=== PATIENT | female | born 1955 | race Caucasian/White ===

== ENCOUNTER → 2017-02-03 | Outpatient (CLI) | payer SELFPAY ==
[2017-02-03 11:31] LABS: HEMATOCRIT 45.3 % (37.0-47.0); MEAN CELL VOLUME 96 fl (80.0-100.0); MEAN CORPUSCULAR HEMOGLOBIN 32 pg (27.0-31.0); MEAN CORPUSCULAR HGB CONC 33 g/dl (33.0-37.0); MEAN PLATELET VOLUME 10.9 fl (7.4-10.4); PLATELET COUNT 206 K/mm3 (130-400); RED BLOOD COUNT 4.71 M/mm3 (4.10-5.30); REDCELL DISTRIBUTION WIDTH-CV 12.1 % (11.5-14.5); WHITE BLOOD COUNT 4.7 K/mm3 (4.8-10.8)
[2017-02-03 11:42] LABS: ADJUSTED CALCIUM 9.4 mg/dL (8.4-10.2); ALBUMIN 4.3 gm/dL (3.5-5.0); BILIRUBIN,TOTAL 0.9 mg/dL (0.0-1.0); CALCIUM 9.6 mg/dL (8.4-10.2); CREATININE, serum 0.74 mg/dL (0.52-1.25); TOTAL PROTEIN 7.7 gm/dL (6.4-8.2)
[2017-02-03 12:11] LABS: THYROID STIMULATING HORMONE 1.11 uIU/mL (0.465-4.680)
== END ==
LOC: ZLAB.FHCC 11:19
PROVIDERS: Family Medicine
DX: Z01.89 Encounter for other specified special examinations (principal)

== ENCOUNTER → 2017-02-25 | Outpatient (CLI) | payer SELFPAY | LOC: SUN.DIA 10:37 | DX: E10.65 Type 1 diabetes mellitus with hyperglycemia (principal); Z68.1 Body mass index [BMI] 19.9 or less, adult; Z79.4 Long term (current) use of insulin; Z71.3 Dietary counseling and surveillance | CPT/HCPCS: G0108 ==

== ENCOUNTER 2022-07-15 12:01 | Emergency (ER) | payer MEDICARE ==
[~2022-07-15] VITALS: Ht 154.9 cm; Wt 50.9 kg
[2022-07-15 12:18] VITALS: TEMP 97.5
[2022-07-15] MEDS ORDERED: HUMULIN 70/3100 U/M1 SQ ×2 (12:22→12:23)
[2022-07-15] MEDS ORDERED: PRINIVIL10 MG PO ×2 (12:24→16:21)
[2022-07-15 13:22] LABS: BASO % 0.2 % (0.0-2.0); EOS % 0.1 % (0.0-4.0); GRAN # 7.2 K/mm3 (1.4-6.5); GRAN % 78.1 % (42.2-75.2); HEMATOCRIT 42.6 % (37.0-47.0); HEMOGLOBIN 14.3 g/dl (12.5-16.0); LYMPH # 1.4 K/mm3 (1.2-3.4); MEAN CELL VOLUME 93 fl (80.0-100.0); MEAN CORPUSCULAR HEMOGLOBIN 31 pg (27-31); MEAN CORPUSCULAR HGB CONC 34 g/dl (33.0-37.0); MEAN PLATELET VOLUME 10.5 fl (7.4-10.4); MONO # 0.6 K/mm3 (0.1-0.6); MONO % 6.3 % (1.7-9.3); PLATELET COUNT 289 K/mm3 (130-400); REDCELL DISTRIBUTION WIDTH-CV 12.3 % (11.5-14.5)
[2022-07-15 13:27] LABS: COLLECTION METHOD CLEAN CATCH
[2022-07-15 13:36] LABS: ACETONE,SERUM SMALL
[2022-07-15 13:37] LABS: MUCOUS Present (NOT PRESENT); SQUAMOUS EPITHELIAL 0-2 /hpf (0-10); URINE APPEARANCE Clear (CLEAR/HAZY); URINE BACTERIA None Seen /hpf (NONE SEEN); URINE COLOR Yellow (YELLOW); URINE RBC 0-2 /hpf (0-2)
[2022-07-15 13:38] LABS: PH 5.5 (5.0-8.5); URINE BLOOD Negative (NEGATIVE); URINE GLUCOSE 2+ (NEGATIVE); URINE KETONE 4+ (NEGATIVE); URINE NITRATE Negative (NEGATIVE); URINE PROTEIN(semi-quant) 1+ (NEGATIVE); URINE UROBILINOGEN 0.2 E.U/dL (0.2-1.0)
[2022-07-15 13:42] LABS: ALANINE AMINOTRANSFERASE 14 U/L (0-55); ALBUMIN 3.9 gm/dL (3.4-4.8); ALKALINE PHOSPHATASE 88 U/L (40-150); ANION GAP 21 mmol/L (7-16); AST,SGOT 13 U/L (5-34); BILIRUBIN,TOTAL 0.7 mg/dL (0.2-1.2); BLOOD UREA NITROGEN 18 mg/dL (10-20); CALCIUM 9.2 mg/dL (8.4-10.2); CARBON DIOXIDE 20 mmol/L (23-31); CREATININE, serum 1.06 mg/dL (0.57-1.11); GLUCOSE 393 mg/dL (70-99); LIPASE 35 U/L (8-78); SODIUM 129 mmol/L (136-145)
[2022-07-15 13:45] LABS: CHLORIDE 88 mmol/L (98-107)
[2022-07-15 14:02] LABS: TSH w REFLEX 0.865 uIU/mL (0.350-4.940)
[2022-07-15 14:03] LABS: TROPONIN-I < 0.010 ng/mL (0.00-0.033)
[2022-07-15 16:07] LABS: CALCIUM 8.7 mg/dL (8.4-10.2); CREATININE, serum 0.85 mg/dL (0.57-1.11); POTASSIUM 3.5 mmol/L (3.5-4.5)
[2022-07-15] MEDS ORDERED: ZOFRAN ODT4 MG PO (16:21)
[2022-07-15 16:28] VITALS: BP 178/76; PULSE 94
== END 2022-07-15 16:28 | disposition home or self-care (01) ==
LOC: COL.ER 12:01
PROVIDERS: Emergency Medicine
DX: E10.65 Type 1 diabetes mellitus with hyperglycemia (principal); I10 Essential (primary) hypertension; Z87.891 Personal history of nicotine dependence; Z20.822 Contact with and (suspected) exposure to COVID-19; Z79.4 Long term (current) use of insulin; Z28.310 Unvaccinated for COVID-19
CPT/HCPCS: J1815; J2405; J7120

== ENCOUNTER 2024-03-19 06:16 | Emergency (ER) | payer MEDICARE ==
[~2024-03-19] VITALS: Ht 165.1 cm; Wt 52.3 kg
[~2024-03-19 06:16] MED LIST: HUMULIN 70/3100 U/M1 SQ; PRINIVIL10 MG PO; ZOFRAN ODT4 MG PO
[2024-03-19 06:30] VITALS: TEMP 98.5
[2024-03-19 07:16] LABS: BASO # 0.1 K/mm3 (0.0-0.2); BASO % 0.4 % (0.0-2.0); GRAN # 14.1 K/mm3 (1.4-6.5); GRAN % 85.6 % (42.2-75.2); HEMATOCRIT 41.4 % (37.0-47.0); LYMPH # 1.2 K/mm3 (1.2-3.4); LYMPH % 7.2 % (20.0-51.0); MEAN CELL VOLUME 93 fl (80.0-100.0); MEAN CORPUSCULAR HEMOGLOBIN 32 pg (27-31); MEAN CORPUSCULAR HGB CONC 34 g/dl (33.0-37.0); MONO % 6.1 % (1.7-9.3); PLATELET COUNT 177 K/mm3 (130-400); RED BLOOD COUNT 4.44 M/mm3 (4.10-5.30)
[2024-03-19 07:28] LABS: ALANINE AMINOTRANSFERASE 14 U/L (0-55); ALBUMIN 3.4 g/dL (3.4-4.8); ALKALINE PHOSPHATASE 108 U/L (40-150); ANION GAP 12 mmol/L (7-16); AST,SGOT 21 U/L (5-34); BILIRUBIN,TOTAL 1.1 mg/dL (0.2-1.2); BLOOD UREA NITROGEN 9 mg/dL (10-20); CALCIUM 9.4 mg/dL (8.4-10.2); CHLORIDE 97 mEq/L (98-107); CREATININE, serum 1.22 mg/dL (0.57-1.11); GLUCOSE 355 mg/dL (70-99); POTASSIUM 4.2 mEq/L (3.5-4.5); SODIUM 132 mEq/L (136-145); TOTAL PROTEIN 7.5 g/dl (6.2-8.1)
[2024-03-19] MEDS ORDERED: Ketorolac 15 MG/ML VIAL IV ONE (07:30)
[2024-03-19 07:37] LABS: TROPONIN-I < 0.010 ng/mL (0.00-0.033)
[2024-03-19] MEDS ORDERED: Iohexol 300 - 100 ML VIAL IV ONE (07:49)
[2024-03-19] MEDS ORDERED: NS 100 ML IV SCH (07:50)
[2024-03-19] MEDS ORDERED: DOXYCYCLINE 10100 MG PO (08:27)
[2024-03-19] MEDS ORDERED: cefTRIAXone 1 G in Water For Injection,Sterile 10 ML IV ONE (08:30)
[2024-03-19] MEDS ORDERED: NAPROSYN500 MG PO (08:32)
[2024-03-19 08:52] VITALS: BP 148/66; PULSE 90
[2024-03-20] MEDS ORDERED: MELATONIN5 M1 SL (22:35)
== END 2024-03-19 08:57 | disposition home or self-care (01) ==
LOC: COL.ER 06:16
PROVIDERS: Personal Emergency Response Attendant
DX: J18.9 Pneumonia, unspecified organism (principal); E11.65 Type 2 diabetes mellitus with hyperglycemia; D72.829 Elevated white blood cell count, unspecified; Z87.891 Personal history of nicotine dependence
CPT/HCPCS: J0696; J1885; Q9967

== ENCOUNTER 2024-03-20 08:22 | Inpatient (IN) | payer MEDICARE ==
[~2024-03-20] VITALS: Ht 165.1 cm; Wt 43.9 kg
[~2024-03-20 08:22] MED LIST changes: +DOXYCYCLINE 10100 MG PO; +NAPROSYN500 MG PO
[2024-03-20] MEDS ORDERED: NS 1,000 ML IV ONE (08:45)
[2024-03-20] MEDS ORDERED: Doxycycline Hyclate 100 MG in NS 150 ML IV ONE (09:15)
[2024-03-20] MEDS ORDERED: cefTRIAXone 1 G in Water For Injection,Sterile 10 ML IV ONE (09:15)
[2024-03-20 09:21] LABS: HEMOGLOBIN 13.8 g/dl (12.5-16.0); MEAN CELL VOLUME 94 fl (80.0-100.0); MEAN CORPUSCULAR HEMOGLOBIN 32 pg (27-31); MEAN CORPUSCULAR HGB CONC 34 g/dl (33.0-37.0); MEAN PLATELET VOLUME 11.3 fl (7.4-10.4); PLATELET COUNT 197 K/mm3 (130-400); RED BLOOD COUNT 4.36 M/mm3 (4.10-5.30)
[2024-03-20 10:08] LABS: ALBUMIN 3.6 g/dL (3.4-4.8); BILIRUBIN,TOTAL 0.5 mg/dL (0.2-1.2); CALCIUM 10.1 mg/dL (8.4-10.2); CREATININE, serum 1.27 mg/dL (0.57-1.11); POTASSIUM 3.7 mEq/L (3.5-4.5); TOTAL PROTEIN 8.1 g/dl (6.2-8.1)
[2024-03-20 11:09] VITALS: BP 172/70; PULSE 93; TEMP 98
[2024-03-20] MEDS ORDERED: Polyethylene Glycol 3350 17 GM PDS PO PRN (12:00)
[2024-03-20] MEDS ORDERED: Docusate Sodium 100 MG CAP PO PRN (12:00)
[2024-03-20] MEDS ORDERED: Insulin Lispro (HumaLOG) SQ SCH (12:00)
[2024-03-20] MEDS ORDERED: Acetaminophen 325 MG TAB PO PRN (12:00)
[2024-03-20] MEDS ORDERED: Ondansetron 4 MG/2 ML VIAL IV PRN (12:00)
[2024-03-20] MEDS ORDERED: NS 1,000 ML IV SCH (12:00)
[2024-03-20] MEDS ORDERED: Azithromycin 500 MG in NS 250 ML IV SCH (12:15)
[2024-03-20 13:05] LABS: BAND 2 % (0-10); LYMPHOCYTE 3 % (20.0-51.0); NEUTROPHILS 95 % (42.0-75.2); PLATELET ESTIMATE NORMAL (NORMAL)
--- NOTE | 2024-03-20 15:54 | NUR ---
SW was called to complete DPOA/HC documentation for patient. Patient appointed daughter Adarsh Ames [phone]. Document reviewed, signed and witnessed. SW provided copy to patient and placed original in chart. SW was unaware this was a new patient intake was not completed. SW will continue to follow to assist.
[2024-03-20 17:00] VITALS: BP_SYST 157
[2024-03-20 17:14] VITALS: BP 157/57; PULSE 88; TEMP 98.2
[2024-03-20] MEDS ORDERED: Insulin NPH/REG (NovoLIN 70/30) SQ SCH (21:00)
[2024-03-20 21:03] VITALS: BP 159/70; PULSE 81; TEMP 98
[2024-03-20 21:30] VITALS: BP_SYST 159
--- NOTE | 2024-03-20 21:30 | NUR ---
Pt. sitting up in bed. Pt. is A&OX3, assessment complete. IV to lt. forearm patent. Pt. denies pain or other needs, call light within reach.
[2024-03-20] MEDS ORDERED: MELATONIN5 M1 SL (22:35)
[2024-03-20] MEDS ORDERED: Melatonin 3 MG TAB PO SCH (22:45)
[2024-03-21] VITALS (11 sets, daily range): BP systolic 154–184; BP diastolic 58–74; PULSE 83–107; TEMP 97.5–98.4
[2024-03-21] MEDS ORDERED: hydrALAZINE 20 MG/ML 1 ML VIAL IV PRN (00:45)
[2024-03-21] MEDS ORDERED: Promethazine 25 MG TAB PO PRN (02:00)
[2024-03-21 02:51] LABS: CREATININE, serum 1.01 mg/dL (0.57-1.11); FRACTIONAL EXCRETION OF NA+ 0.55 %
[2024-03-21] MEDS ORDERED: Glucagon 1 MG VIAL IM PRN (07:15)
[2024-03-21] MEDS ORDERED: Dextrose 50% Water 25 GM/50 ML SYRINGE IV PRN (07:15)
[2024-03-21] MEDS ORDERED: Dextrose (Glucose) 15 GM (4 x 3.75 GM) Chewable TABLET PACK PO PRN (07:15)
[2024-03-21 08:26] LABS: HEMATOCRIT 40.8 % (37.0-47.0); HEMOGLOBIN 13.3 g/dl (12.5-16.0); MEAN CELL VOLUME 97 fl (80.0-100.0); MEAN CORPUSCULAR HEMOGLOBIN 32 pg (27-31); MEAN CORPUSCULAR HGB CONC 33 g/dl (33.0-37.0); MEAN PLATELET VOLUME 12.2 fl (7.4-10.4); PLATELET COUNT 278 K/mm3 (130-400); RED BLOOD COUNT 4.21 M/mm3 (4.10-5.30); REDCELL DISTRIBUTION WIDTH-CV 12.5 % (11.5-14.5)
[2024-03-21 08:47] LABS: CALCIUM 8.7 mg/dL (8.4-10.2); CREATININE, serum 1.19 mg/dL (0.57-1.11); POTASSIUM 3.9 mEq/L (3.5-4.5)
[2024-03-21] MEDS ORDERED: Insulin NPH/REG (NovoLIN 70/30) SQ SCH ×2 (09:00→17:15)
[2024-03-21] MEDS ORDERED: cefTRIAXone 1 G in Water For Injection,Sterile 10 ML IV SCH (09:00)
[2024-03-21] MEDS ORDERED: Lisinopril 10 MG TAB PO SCH (09:00)
--- NOTE | 2024-03-21 09:00 | NUR ---
pt A&OX4 sitting up on the side of the bed. vss. pt denies pain. nausea present, zofran given. pt blood sugar 398 this morning, 8 units of insulin given per sliding scale. Jackelin JEONG notified of low CO2 of 13. fluids infusing into left forearm. pt denies needs at this time. call light in reach.
[2024-03-21 09:55] LABS: BAND 4 % (0-10); LYMPHOCYTE 9 % (20.0-51.0); NEUTROPHILS 84 % (42.0-75.2); PLATELET ESTIMATE NORMAL (NORMAL)
--- NOTE | 2024-03-21 10:31 | NUR ---
Oncology Consultant met with patient to discuss discharge planning. Patient lives in [place] with her daughter, Adarsh (ph#[phone]) and does not have a current primary care provider. Patient gets any needed medications at [facility] and does not use any DME. Patient is independent with ADLS and plans to return home at time of discharge. SW spoke with patient about primary care and she was agreeable to have assistance getting established. SW discussed [facility] as they are taking new medicare patients. Patient is agreeable to this. Discharge Plan: Home
[2024-03-21 11:30] LABS: CALCIUM 8.4 mg/dL (8.4-10.2); CREATININE, serum 1.33 mg/dL (0.57-1.11); POTASSIUM 3.7 mEq/L (3.5-4.5)
[2024-03-21] MEDS ORDERED: AlOH3/diphen/Lidoc/MgOH2/Simet Oral Susp 10 ML UD Syringe PO SCH (11:30)
[2024-03-21] MEDS ORDERED: Insulin Human Regular/NS 100 ML IV SCH (12:00)
[2024-03-21] MEDS ORDERED: D5 1/2 NS 1,000 ML IV SCH (12:00)
[2024-03-21] MEDS ORDERED: NS & 20 mEq KCl 1,000 ML IV SCH (12:00)
[2024-03-21 12:13] LABS: MAGNESIUM 1.9 mg/dL (1.6-2.6); PHOSPHOROUS 3.2 mg/dL (2.3-4.7)
--- NOTE | 2024-03-21 13:17 | NUR ---
Initial visit; Patient was ordering coffee but thanked Cement Block Maker for looking in on her and keeping her in her prayers and offering God's blessings. Cement Block Maker mentined she is available to [facility] if she would like a visit later.
--- NOTE | 2024-03-21 13:55 | NUR ---
report called to Guadalupe Bolanos in ICU, pt transferred too ICU room 5.
--- NOTE | 2024-03-21 14:00 | NUR ---
PATIENT TRANSFERRED TO ICU ROOM 5 FROM MEDICAL FLOOR. REPORT RECEIVED FROM MEDICAL RNMANJINDER. PATIENT ARRIVED VIA WHEELCHAIR ACCOMPANIED BY ANNABELLA DUNBAR. PATIENT ABLE TO AMBULATE TO BED INDEPENDENTLY. VSS. PATIENT SITUATED INTO BED AND ORIENTED TO ICU. BED IN A LOW POSITION. CALL LIGHT WITHIN REACH.
[2024-03-21 16:47] LABS: CALCIUM 8.4 mg/dL (8.4-10.2); CREATININE, serum 1.08 mg/dL (0.57-1.11); POTASSIUM 3.6 mEq/L (3.5-4.5)
[2024-03-21] MEDS ORDERED: NS 1,000 ML IV SCH (18:45)
--- NOTE | 2024-03-21 19:15 | NUR ---
Received report from ANNABELLA Butcher.
[2024-03-21 19:35] LABS: CALCIUM 8.3 mg/dL (8.4-10.2); CREATININE, serum 0.98 mg/dL (0.57-1.11); POTASSIUM 3.1 mEq/L (3.5-4.5)
--- NOTE | 2024-03-21 20:00 | NUR ---
Patient sitting up in bed watching TV. Denies pain or discomfort. Vitals within normal limits. Insulin drip remains off at this time.
[2024-03-21] MEDS ORDERED: Potassium Bicarbonate/Citrate 20 MEQ Effervescent TAB PO SCH (20:45)
[2024-03-21] MEDS ORDERED: *Potassium Replacement Protocol MC SCH (20:45)
[2024-03-21] MEDS ORDERED: Insulin Lispro (HumaLOG) SQ SCH (21:00)
[2024-03-21] MEDS ORDERED: Potassium Chloride 100 ML IV SCH (21:15)
[2024-03-21 21:39] LABS: CALCIUM 8.6 mg/dL (8.4-10.2); POTASSIUM 3.5 mEq/L (3.5-4.5)
[2024-03-22] VITALS (7 sets, daily range): BP systolic 151–179; BP diastolic 67–86; PULSE 77–85; TEMP 97.6–98.1
[2024-03-22 04:42] LABS: BASO % 0.2 % (0.0-2.0); GRAN # 8.8 K/mm3 (1.4-6.5); GRAN % 76.8 % (42.2-75.2); HEMATOCRIT 37.5 % (37.0-47.0); HEMOGLOBIN 12.7 g/dl (12.5-16.0); LYMPH # 1.8 K/mm3 (1.2-3.4); LYMPH % 15.4 % (20.0-51.0); MEAN CELL VOLUME 93 fl (80.0-100.0); MEAN CORPUSCULAR HEMOGLOBIN 32 pg (27-31); MEAN CORPUSCULAR HGB CONC 34 g/dl (33.0-37.0); MEAN PLATELET VOLUME 10.9 fl (7.4-10.4); MONO # 0.8 K/mm3 (0.1-0.6); MONO % 6.9 % (1.7-9.3); PLATELET COUNT 252 K/mm3 (130-400); RED BLOOD COUNT 4.02 M/mm3 (4.10-5.30); REDCELL DISTRIBUTION WIDTH-CV 12.5 % (11.5-14.5)
[2024-03-22 04:58] LABS: CALCIUM 8.1 mg/dL (8.4-10.2); CREATININE, serum 0.87 mg/dL (0.57-1.11); POTASSIUM 4.3 mEq/L (3.5-4.5)
[2024-03-22] MEDS ORDERED: Lidocaine PF 2% (20 MG/ML) 5 ML VIAL ONE (07:17)
[2024-03-22] MEDS ORDERED: Insulin NPH/REG (NovoLIN 70/30) SQ SCH (07:30)
--- NOTE | 2024-03-22 07:33 | NUR ---
RECEIVED REPORT FROM MILDRED SMITH RN. PATIENT RESTING IN BED WITH EYES CLOSED. PATIENT INDEPENDENT IN ROOM AND MEDICAL STATUS. BED IN A LOW POSITION. CALL LIGHT WITHIN REACH.
--- NOTE | 2024-03-22 08:46 | NUR ---
HEAD TO TOE ASSESSMENT COMPLETED. PATIENT IS ALERT AND ORIENTED. VSS. BLOOD SUGAR CHECKED, 292. PUPILS EQUAL AND REACTIVE. HEART SOUND REGULAR WITH S1 AND S2 NOTED. LUNG SOUNDS CLEAR BILATERALLY WITH DIMINISHING NOTED TO BASES BILATERALLY. BOWEL SOUNDS ACTIVE X4. PATIENT ABLE TO AMBULATE INDEPENDENTLY TO TOILET TO VOID. PULSES PRESENT AND EQUAL BILATERALLY IN UPPER AND LOWER EXTREMITIES. PATIENT HAS NO COMPLAINTS OF PAIN THIS MORNING, BUT DOES REPORT MILD NAUSEA. PRN MEDICATION ADMINISTERED PER EMAR FOR NAUSEA. PATIENT ORDERED BREAKFAST INDEPENDENTLY. INSULIN AND OTHER MORNING MEDICATIONS ADMINISTERED PER EMAR. BED IN A LOW POSITION. CALL LIGHT WITHIN REACH.
--- NOTE | 2024-03-22 14:08 | NUR ---
REPORT CALLED TO LEW BAINS RN. PATIENT TRANSFERRED TO MEDICAL ROOM 311 VIA WHEELCHAIR. ALL BELONGINGS TAKEN WITH. PATIENT OFF UNIT AT 1409.
[2024-03-23 03:36] VITALS: BP 175/77; PULSE 76; TEMP 97.9
[2024-03-23 07:22] LABS: HEMATOCRIT 37.4 % (37.0-47.0); HEMOGLOBIN 12.2 g/dl (12.5-16.0); MEAN CELL VOLUME 97 fl (80.0-100.0); MEAN CORPUSCULAR HEMOGLOBIN 32 pg (27-31); MEAN CORPUSCULAR HGB CONC 33 g/dl (33.0-37.0); MEAN PLATELET VOLUME 12.1 fl (7.4-10.4); RED BLOOD COUNT 3.87 M/mm3 (4.10-5.30); REDCELL DISTRIBUTION WIDTH-CV 12.5 % (11.5-14.5)
[2024-03-23 07:27] LABS: CALCIUM 8.1 mg/dL (8.4-10.2); CREATININE, serum 0.73 mg/dL (0.57-1.11); POTASSIUM 3.6 mEq/L (3.5-4.5)
[2024-03-23] MEDS ORDERED: Insulin NPH/REG (NovoLIN 70/30) SQ SCH ×4 (07:30→16:30)
[2024-03-23 09:37] LABS: PLATELET COUNT 118 K/mm3 (130-400)
[2024-03-23 09:55] LABS: BAND 8 % (0-10); LYMPHOCYTE 14 % (20.0-51.0); NEUTROPHILS 73 % (42.0-75.2); PLATELET ESTIMATE NORMAL (NORMAL)
[2024-03-23] MEDS ORDERED: Lisinopril 10 MG TAB PO SCH (11:00)
[2024-03-24 08:00] VITALS: BP 168/72; PULSE 79; TEMP 98.8
[2024-03-24] MEDS ORDERED: Lisinopril 20 MG TAB PO SCH (09:00)
[2024-03-24] MEDS ORDERED: levoFLOXacin 750 MG TAB PO SCH (09:00)
[2024-03-24] MEDS ORDERED: Magnesium Sulfate 2 GM/50 ML IV SOLN IV SCH (11:00)
--- NOTE | 2024-03-24 15:01 | NUR ---
Initial visit; Patient thanked Child Support Agent for looking in on her and offering God's blessings. Patient hopes to be discharged today stating she is doing well. Child Support Agent wished her well.
[2024-03-24] MEDS ORDERED: Melatonin 3 MG TAB PO SCH (21:00)
== END 2024-03-24 11:00 | disposition home or self-care (01) | DRG 637 ==
LOC: COL.ER 08:22 → MEDICAL 09:39 → ICU 03-21 13:50 → MEDICAL 03-22 14:00
PROVIDERS: Emergency Medicine; Physician Assistant; ADMIT Hospitalist
DX: E11.10 Type 2 diabetes mellitus with ketoacidosis without coma (principal); J18.9 Pneumonia, unspecified organism; E11.9 Type 2 diabetes mellitus without complications; Z79.4 Long term (current) use of insulin; I10 Essential (primary) hypertension; E83.42 Hypomagnesemia
CPT/HCPCS: C1751; C1892; G0378; J0360; J0456; J0696; J1650; J1815; J2405; J2543; J2704; J3475; J3480; J7030; J7050

== ENCOUNTER 2024-05-13 21:14 | Emergency (ER) | payer MEDICARE ==
[~2024-05-13] VITALS: Ht 165.1 cm; Wt 50.9 kg
[~2024-05-13 21:14] MED LIST changes: +MELATONIN5 M1 SL
[2024-05-13] MEDS ORDERED: predniSONE 20 MG TAB PO ONE (22:00)
[2024-05-13] MEDS ORDERED: PREDNISONE10 MG PO (22:58)
[2024-05-13 23:08] VITALS: BP 1686/79; PULSE 77; TEMP 98
== END 2024-05-13 23:08 | disposition home or self-care (01) ==
LOC: COL.ER 21:14
DX: L23.7 Allergic contact dermatitis due to plants, except food (principal)
CPT/HCPCS: J7512

== ENCOUNTER 2024-07-23 08:06 | Emergency (ER) | payer MEDICARE ==
[~2024-07-23] VITALS: Ht 167.6 cm; Wt 54.8 kg
[~2024-07-23 08:06] MED LIST changes: +PREDNISONE10 MG PO
[2024-07-23 08:09] VITALS: TEMP 98.1
[2024-07-23] MEDS ORDERED: NORCO 325 MG-51 TAB PO (08:57)
[2024-07-23] MEDS ORDERED: cefTRIAXone 1 G,Lidocaine PF 1% 2.1 ML IM ONE (09:00)
[2024-07-23 09:32] VITALS: BP 174/89; PULSE 66
== END 2024-07-23 09:35 | disposition home or self-care (01) ==
LOC: COL.ER 08:06
DX: H61.21 Impacted cerumen, right ear (principal); H66.91 Otitis media, unspecified, right ear
CPT/HCPCS: J0696